=== PATIENT | female | born 1965 | race Caucasian/White ===

== ENCOUNTER → 2020-09-29 09:40 | Outpatient (CLI) | payer OTHER, SELFPAY ==
--- NOTE | 2020-09-29 09:55 | DIET.PN ---
Dietary Progress Note Assessment: 54y F attending nutrition visit for help with post-bariatric weight gain c pmhx of:HTN, DM2, sleep apnea (went away but now on cpap again), bipolar and depression. Pt had RYGB 4y ago down at , heaviest weight was 358#, got down to 219#, now up to 256-258#, gained back over last year and a half, pt also endorses brittle nails and hair falling out. Contributing Factors: 1. Pt pulled achilles and meniscus so injuries prohibited from exercises 2. Pt started eating poorly and off plan- ice cream, chips, CHO foods, bread, candy 3. Pt watches her non-verbal 2y grandson and cares for her 86y mother (which cases her the most stress and emotional eating) Sometimes gets dumping syndrome if overeating CHO foods, feels she does this about half the time. eats best chicken, fish, yogurt, eggs, cheese, half a protein shake (premier or atkins) can't eat much red meat, it gets stuck Does all the vitamins: calcium, vitamin D, B12, MVI Usual Day: wakes 4:30-5:30am sometimes feels rested showers, ready for day, clean up house B(6-7am): smoothie, coconut milk, yogurt, frozen fruit, half protein drink (sometimes) c 2 slices white bread c butter goes to daughters house to watch 2y non-verbal grandson gets 24-32oz energy drink at coffee stand c coconut milk and two syrups (30g added sugar at least) often skips lunch-or snacks-chips or just jolly ranchers leaves between 4-5pm watches tv or plays games on phone makes dinner for family usually: [employer] box-low carb/low kcal options Pt was doing treadmill or stationary bike, was doing some exercise classes and walk outside sometimes HT: 5'5 WT: 256# UBW: pre-surgery: 358#, post-surgery: 219# BMI: 42.6 Nutrition Diagnosis: post-bariatric weight gain r/t undesirable food choices and physical inactivity aeb pt has gained back 40# in last 1.5y, pt reports stress eating simple carbs, pt was injured and got out of habit of exercising, BMI 42.6 c return of sleep apnea. Interventions: 1. To regulate pts eating, introduced to hunger scale. Pt will eat when 3 and stop when 8. Pt will process emotions around anytime she eats when 5. Pt will work towards alternate coping mechanisms which support her new anatomy and overall health. 2. To support healthy body function, hair and nail growth, and weight regulation, educated pt on importance of protein intake using handout. Pts anatomy only allows small volume of food and needs to prioritize protein. Set goal of 80-100g/d, using handout, pt will assess her current protein intake and using snack handout will add in high pro snacks when she is a 3 during the day. 3. To support pts reduced iron absorption, pt will include iron rich foods daily using iron food handout. 4. To support nail and hair growth, pt will prioritize protein and start taking daily biotin supplement per post-bariatric reccs. 5. To support pts overall health and weight regulation, educated pt on added sugar, what counts, and practiced label reading. EER: 80-100g PRO/d, no more than 25g added sugar per day Monitoring/Evaluations: f/u in 1mo to assess progress and problem solve barriers.
== END ==
PROVIDERS: PCP Family Medicine; Referring Provider Nurse Practitioner Psychiatric/Mental Health; Visit Provider Nurse Practitioner Psychiatric/Mental Health
DX: Z98.84 Bariatric surgery status (principal); E11.9 Type 2 diabetes mellitus without complications; I10 Essential (primary) hypertension
CPT/HCPCS: 97802

== ENCOUNTER → 2022-04-07 09:42 | Outpatient (CLI) | payer OTHER, SELFPAY ==
[2022-04-10 16:25] LABS: Lamotrigine Lamictal 5.9 ug/mL (2.0-20.0)
== END ==
PROVIDERS: PCP Family Medicine; Referring Provider Psychiatry & Neurology Psychiatry; Visit Provider Psychiatry & Neurology Psychiatry
DX: F31.32 Bipolar disorder, current episode depressed, moderate (principal); F43.12 Post-traumatic stress disorder, chronic; G47.9 Sleep disorder, unspecified; Z51.81 Encounter for therapeutic drug level monitoring
CPT/HCPCS: 36415; 80175; 99214

== ENCOUNTER → 2024-08-28 07:47 | Outpatient (CLI) | payer OTHER, SELFPAY ==
[2024-08-28 08:45] LABS: Add Manual Diff / Slide Review NO; Basophils Absolute Auto 100 /uL (0-100); Eosinophils Absolute Auto 200 /uL (0-450); Eosinophils Percent Auto 3.6 % (2-4); Hematocrit 34.8 % (36-46); Hemoglobin 11.7 g/dL (12.0-16.0); Lymphocytes Absolute Auto 1500 /uL (1100-4500); Mean Corpuscular HGB Conc 33.5 % (30-36); Mean Corpuscular Hemoglobin 30.7 PG (26-34); Mean Corpuscular Volume 91.7 fL (80-100); Monocytes Absolute Auto 800 /uL (0-900); Monocytes Percent Auto 14.5 % (3-14); Neutrophils Absolute Auto 3200 /uL (1500-7000); Neutrophils Percent Auto 55.9 % (50-75); Platelet Count 183 X10^3/uL (150-400); Red Cell Distribution Width 13.4 % (11.6-14.8); White Blood Cell Count 5.8 X10^3/uL (4.5-11.0)
[2024-08-28 08:53] LABS: Alanine Aminotransferase 25 IU/L (<35); Albumin 4.1 g/dL (3.5-5.0); Albumin Globulin Ratio 1.7 (1.0-2.8); Alkaline Phosphatase 84 U/L (38-126); Aspartate Aminotransferase 29 IU/L (14-36); BUN Creatinine Ratio 14.7 (6-22); Bilirubin Total 0.5 mg/dL (0.2-1.3); Blood Urea Nitrogen 16 mg/dL (7-17); Calcium 9.7 mg/dL (8.4-10.2); Carbon Dioxide 27 mmol/L (22-32); Chloride 108 mmol/L (98-107); Cholesterol 154 mg/dL (140-199); Estimated Glomerular Filt Rate 59 mL/min (>60); Globulin 2.4 g/dL (1.7-4.1); Glucose 92 mg/dL (70-100); HDL Cholesterol 64 mg/dL (40-60); HEMOLYSIS 16 (0-50); LDL Cholesterol Calculated 75 mg/dL (<100); Potassium 5.2 mmol/L (3.4-5.1); Sodium 139 mmol/L (137-145); Total Protein 6.5 g/dL (6.3-8.2); Triglycerides 74 mg/dL (35-150)
[2024-08-28 09:07] LABS: Hemoglobin A1C% w Est Avg Glu 4.8 % (4.0-6.0)
== END ==
PROVIDERS: Referring Provider Psychiatry & Neurology Psychiatry; Visit Provider Psychiatry & Neurology Psychiatry
DX: F31.32 Bipolar disorder, current episode depressed, moderate (principal); Z79.899 Other long term (current) drug therapy
CPT/HCPCS: 36415; 80053; 80061; 80175; 83036; 85025

== ENCOUNTER → 2025-05-26 09:43 | Outpatient (CLI) | payer OTHER, SELFPAY ==
[2025-05-26 10:52] LABS: Add Manual Diff / Slide Review NO; Hematocrit 28.1 % (36-46); Hemoglobin 8.8 g/dL (12.0-16.0); Lymphocytes Absolute Auto 1200 /uL (1100-4500); Mean Corpuscular HGB Conc 31.4 % (30-36); Mean Corpuscular Hemoglobin 25.2 PG (26-34); Mean Corpuscular Volume 80.4 fL (80-100); Platelet Count 244 X10^3/uL (150-400)
[2025-05-26 11:44] LABS: Alanine Aminotransferase 30 IU/L (<35); Albumin 4.1 g/dL (3.5-5.0); Albumin Globulin Ratio 1.5 (1.0-2.8); Alkaline Phosphatase 115 U/L (38-126); Blood Urea Nitrogen 14 mg/dL (7-17); Calcium 9.2 mg/dL (8.4-10.2); Carbon Dioxide 27 mmol/L (22-32); Chloride 104 mmol/L (98-107); Cholesterol 158 mg/dL (140-199); Estimated Glomerular Filt Rate > 60 mL/min (>60); Globulin 2.7 g/dL (1.7-4.1); Glucose 105 mg/dL (70-99); HDL Cholesterol 74 mg/dL (40-60); HEMOLYSIS < 15 (0-50); Potassium 5.2 mmol/L (3.4-5.1); Sodium 138 mmol/L (137-145); Total Protein 6.8 g/dL (6.3-8.2); Triglycerides 76 mg/dL (35-150)
[2025-05-29 21:39] LABS: Lamotrigine Lamictal 4.7 ug/mL (2.0-20.0)
== END ==
PROVIDERS: PCP Family Medicine; Referring Provider Psychiatry & Neurology Psychiatry; Visit Provider Psychiatry & Neurology Psychiatry
DX: Z79.899 Other long term (current) drug therapy (principal)
CPT/HCPCS: 36415; 80053; 80061; 80175; 85025